=== PATIENT | male | born 1950 | race Caucasian/White ===

== ENCOUNTER 2022-10-29 19:30 | Emergency (ER) | payer MEDICARE, SELFPAY ==
--- NOTE | ~2022-10-29 | XR_ITS ---
EXAM: XR hand RT min 3V DATE: 10/29/2022 19:57 HISTORY: DOG BITE 10/29/22 DORSAL SIDE. . COMPARISON: None available. FINDINGS: Normal mineralization. No fracture or dislocation. No lytic or blastic lesion. Moderate po lyarticular osteoarthritis. No erosion or periosteal change. Punctate hyperdensities in the soft tiss ues of the distal right second digit. IMPRESSION: No acute osseous finding in the right hand. Punctate soft tissue hyperdensities in the di stal right second digit, representing soft tissue foreign bodies of uncertain age, correlate with sup erficial findings of skin injury or infection. Reviewed, dictated and finalized at location [facility]. IMPRESSION: No acute osseous finding in the right hand. Punctate soft tissue hy perdensities in the distal right second digit, representing soft tissue foreign bodies of uncertain age, correlate with superficial findings of skin injury or infection.
[2022-10-29 19:38] VITALS: BP 133/81; PULSE 68; RESP 20; TEMP 36.9; O2SAT 95
--- NOTE | 2022-10-29 19:47 | ED.WOUNDLAC ---
HPI - Wound/Laceration General Chief Complaint: Wound/Laceration Stated Complaint: Dog bite right hand History of Present Illness HPI narrative: Pt is a 71 y/o male, presents to with right hand dog bite laceration, sustained when his own dog bit him while he attempted to remove him from the porch by grabbing his collar. His dog is UTD on immunizations. Pt is uncertain when his last tetanus was received. He denies ROM deficit. Bleeding was quickly controlled at home and he cleaned the wound with soap and water prior to applying a bandage. He is right hand dominant. He has no other complaints today. Related Data Allergies Allergy/AdvReac Type Severity Reaction Status Date / Time MAK Inhibitors Allergy Other Verified 10/29/22 19:48 Sulfa (Sulfonamide Allergy Rash Verified 10/29/22 19:48 Antibiotics) tobramycin Allergy Other Verified 10/29/22 19:48 Review of Systems Integumentary/Breasts: Comments: refer to HPI Exam Const: General: cooperative, healthy appearing, comfortable, no acute distress, well developed, alert, awake and Physically active Nutritional Appearance: average body habitus Orientation/consciousness: oriented to person Limitations: no limitations HENMT: Head: normal to inspection Ears: hearing grossly normal bilaterally Face and sinus: normal facial exam Mouth: Yes Normal oral and palatal mucosa present Eyes: General: appearance normal, both eyes and all related structures Neck: Neck: normal visual inspection and full ROM Resp: Effort & Inspection: normal respiratory effort Auscultation: clear to auscultation bilaterally Cardio: Rate: regular rate Rhythm: regular rhythm Skin: Wounds: wounds noted (dog bite laceration of the right thumb, dorsal aspect, overlying the 1st MC) Other: no active bleeding, no drainage. Distal PMS is intact Neuro: General: oriented to person, oriented to place, oriented to time, patient oriented x3, gait normal, tone normal and moves all extremities Sensory Exam: normal sensation Extrem: General: normal to inspection, full ROM and capillary refill normal Course Course Emergency Course: plain film imaging, R/O fracture/FB, Tetanus booster. Plan to repair if imaging is unremarkable; with steri strips after wound is irrigated here, thumb splint for wound protection, Augmentin for home. Level of Care: Express Care Visit ([id number]) Vital Signs Vital signs: Vital Signs Temperature 36.9 C 10/29/22 19:38 Pulse Rate 68 06/22/23 19:38 Respiratory Rate 20 10/29/22 19:38 Blood Pressure 133/81 10/29/22 19:38 Pulse Oximetry 95 10/29/22 19:38 Oxygen Delivery Room Air 10/29/22 19:38 Temperature 36.9 C 10/29/22 19:38 Pulse Rate 68 10/29/22 19:38 Respiratory Rate 20 10/29/22 19:38 Blood Pressure 133/81 10/29/22 19:38 Pulse Oximetry 95 10/29/22 19:38 Oxygen Delivery Room Air 10/29/22 19:38 Procedures Laceration Laceration 1: Date: 10/29/22 Time: 20:40 Site: upper extremity (RIGHT HAND-1ST ) Side (If applicable): right Size (cm): 1 Pre-repair: wound explored and irrigated ====== Skin Level ====== Skin layer closed with: steri strips (3) ====== Subcutaneous Layer ====== ====== Muscle Layer ====== ====== Tendon Layer ====== Dressing: TELPHA, FINGER SPLINT, COBAN, DISTAL PMS INTACT PRE AND POST APPLICATION MDM - Wound/Laceration MDM Narrative Medical decision making narrative: imaging unremarkable for fracture or FB. Plan to discharge home, augmentin tetanus booster provided, FU with PCP for wound check in 3 days Differential Diagnosis Differential diagnosis: Likely laceration and other (avulsion, FB, Fx) Discharge Plan Discharge Clinical Impression: Need for [id number] (Tdap) vaccine Dog bite of right hand Qualifiers: Encounter type: initial encounter Qualified Code(s): S61.451A - Open bite of right hand, init
[2022-10-29] MEDS: TETANUS,DIPHTHERIA,AC PERTUSSIS ADULT (0.5 ML) BOOSTRIX IM (20:09)
== END 2022-10-29 20:50 | disposition home or self-care (01) ==
PROVIDERS: Emergency Provider Nurse Practitioner Family; PCP Internal Medicine
DX: S61.411A Laceration without foreign body of right hand, initial encounter (principal); W54.0XXA Bitten by dog, initial encounter; Z23 Encounter for immunization
CPT/HCPCS: 29130; 73130; 90471; 90715; 99213; G0463

== ENCOUNTER 2023-04-22 14:26 | Emergency (ER) | payer MEDICARE, SELFPAY ==
[2023-04-22 14:35] VITALS: BP 136/78; PULSE 65; RESP 16; TEMP 37.6; O2SAT 97
--- NOTE | 2023-04-22 15:11 | ED.GENADULT ---
HPI - General Adult General Chief complaint: Extremity Injury, Upper Stated complaint: Right Neck/Shoulder Pain Time Seen by Provider: 04/22/23 15:11 Source: patient, RN notes reviewed and old records reviewed Mode of arrival: ambulatory Limitations: no limitations History of Present Illness HPI narrative: 72-year-old presents to the [facility] with right lateral neck, shoulder for 2 days. Patient states that he was mowing the grass and using a leaf blower 2 days ago States he has taken his tramadol and Flexeril. Using Biofreeze. States the pain is not getting any better. Related Data Home Medications Medication Instructions Recorded Confirmed amlodipine 5 mg tablet mg 04/22/23 apixaban 5 mg tablet (Eliquis) mg 04/22/23 buspirone 5 mg tablet mg 04/22/23 cyclobenzaprine 10 mg tablet mg 04/22/23 hydralazine 25 mg tablet mg 04/22/23 levothyroxine 25 mcg tablet mcg 04/22/23 montelukast 10 mg tablet mg 04/22/23 pantoprazole 40 mg tablet,delayed mg PO 04/22/23 release tamsulosin 0.4 mg capsule mg PO 04/22/23 Allergies Allergy/AdvReac Type Severity Reaction Status Date / Time MAK Inhibitors Allergy Other Verified 04/22/23 14:38 Sulfa (Sulfonamide Allergy Rash Verified 04/22/23 14:38 Antibiotics) tobramycin Allergy Other Verified 04/22/23 14:38 Review of Systems Review of Systems: All systems reviewed & are unremarkable except as noted in HPI and below Constitutional: Constitutional: Reports no additional constitutional complaints Eyes: Eyes: Reports no additional eye complaints ENT: Reports system reviewed and no additional complaints, except as documented Cardiovascular: Cardiovascular: Reports no additional cardiovascular complaints, Denies chest pain and Denies dyspnea Respiratory: Respiratory: Reports no additional respiratory complaints, Denies chest congestion, Denies cough and Denies dyspnea Gastrointestinal: Gastrointestinal: Reports no additional gastrointestinal complaints, Denies abdominal pain, Denies nausea and Denies vomiting Musculoskeletal: Musculoskeletal: Reports as per HPI Integumentary/Breasts: Skin/Breast: Reports system reviewed and no additional complaints, except as docu Neurologic: Reports system reviewed and no additional complaints, except as documented Psychiatric: Psychiatric: Reports no additional psychiatric complaints Allergic/Immunologic: Allergic/Immunologic: Reports no additional allergic/immunologic complaints PMFSH Comments At the time of my signature, I reviewed and agree with the nursing past medical, surgical, social, and family history. There is no relevant family history pertinent to the patient complaint. Exam Const: General: cooperative, healthy appearing, comfortable, no acute distress, well developed, alert and well nourished Nutritional Appearance: well nourished Orientation/consciousness: patient oriented x3 Limitations: no limitations HENMT: Head: normal to inspection Ears: hearing grossly normal bilaterally and external ears normal Face/Nose/Sinus: Normal external nose present, Normal nares present, Normal nasal mucous membranes and turbinates present, normal facial exam and face symmetric Face and sinus: normal facial exam and face symmetric Eyes: General: appearance normal, both eyes and all related structures Alignment and Position: alignment normal Periorbital: periorbital findings normal Pupils: Equal, round and reactive pupils present EOM: EOMs intact bilaterally Neck: Neck: normal visual inspection, full ROM, no lymphadenopathy and no meningeal signs Chest: Chest palpation & inspection: normal inspection of the chest Resp: Effort & Inspection: normal respiratory effort and able to speak in complete sentences Auscultation: clear to auscultation bilaterally, no crackles, no rales, no rhonchi and no wheezes Cardio: Rate: regular rate Rhythm: regular rhythm Back/Spine/Pelvis: Cervical Spine: cervical ROM normal, pain with ce
== END 2023-04-22 15:28 | disposition home or self-care (01) ==
PROVIDERS: Emergency Provider Nurse Practitioner; PCP Internal Medicine
DX: S46.811A Strain of other muscles, fascia and tendons at shoulder and upper arm level, right arm, initial encounter (principal); Z79.899 Other long term (current) drug therapy; Z79.01 Long term (current) use of anticoagulants; X58.XXXA Exposure to other specified factors, initial encounter
CPT/HCPCS: 99213; G0463

== ENCOUNTER 2024-01-08 12:53 | Emergency (ER) | payer MEDICARE, SELFPAY ==
[2024-01-08 13:01] VITALS: BP 143/77; PULSE 83; RESP 16; TEMP 37.5; O2SAT 98
[2024-01-08 13:26] LABS: EDUAAPPEAR Clear; EDUABILI 1+; EDUABLOOD Negative; EDUACOLOR1 Tea Colored; EDUAGLUCOSE Negative; EDUAKETONE Negative; EDUALEUKO Trace; EDUANITRATE Negative; EDUAPH 5.5; EDUAPROTEIN 1+; EDUAUROBILI 0.2
--- NOTE | 2024-01-08 13:36 | ED.GENADULT ---
HPI - General Adult General Chief complaint: Urogenital-Male Stated complaint: Urinary Problem Time Seen by Provider: 01/08/24 13:09 History of Present Illness HPI narrative: 73-year-old male to Express Care with complaint fever up to 103.2?, urinary urgency, urinary retention, penile pain with urination since yesterday. Patient reports urinating 12 times overnight. Patient denies abdominal pain, flank pain, dysuria, pertinent medical history. Patient able to tolerate fluids by mouth. Patient resting comfortably in exam room. No acute distress. Related Data Home Medications Medication Instructions Recorded Confirmed amlodipine 5 mg tablet mg 04/22/23 apixaban 5 mg tablet (Eliquis) mg 04/22/23 buspirone 5 mg tablet mg 04/22/23 hydralazine 25 mg tablet mg 04/22/23 levothyroxine 25 mcg tablet mcg 04/22/23 montelukast 10 mg tablet mg 04/22/23 pantoprazole 40 mg tablet,delayed mg PO 04/22/23 release tamsulosin 0.4 mg capsule mg PO 04/22/23 Adults Multivitamin 01/08/24 tizanidine 2 mg tablet mg 01/08/24 tramadol 50 mg tablet mg 01/08/24 Allergies Allergy/AdvReac Type Severity Reaction Status Date / Time MAK Inhibitors Allergy Other Verified 01/08/24 13:01 Sulfa (Sulfonamide Allergy Rash Verified 01/08/24 13:01 Antibiotics) tobramycin Allergy Other Verified 01/08/24 13:01 Review of Systems Genitourinary: Genitourinary: Reports as per HPI, Denies hematuria, Reports genital pain ( With urination), Denies flank pain, Reports nocturia, Reports urinary frequency and Reports urinary hesitancy Course Course Level of Care: Express Care Visit Vital Signs Vital signs: Vital Signs Temperature 37.5 C 01/08/24 13:01 Pulse Rate 83 01/08/24 13:01 Respiratory Rate 16 01/08/24 13:01 Blood Pressure 143/77 H 01/08/24 13:01 Pulse Oximetry 98 01/08/24 13:01 Oxygen Delivery Room Air 01/08/24 13:01 Temperature 37.5 C 01/08/24 13:01 Pulse Rate 83 01/08/24 13:01 Respiratory Rate 16 01/08/24 13:01 Blood Pressure 143/77 H 01/08/24 13:01 Pulse Oximetry 98 01/08/24 13:01 Oxygen Delivery Room Air 01/08/24 13:01 Medical Decision Making MDM Narrative Medical decision making narrative: 73-year-old male to Express Care with complaint fever up to 103.2?, urinary urgency, urinary retention, penile pain with urination since yesterday. Patient reports urinating 12 times overnight. Patient denies abdominal pain, flank pain, dysuria, pertinent medical history. Patient able to tolerate fluids by mouth. Patient resting comfortably in exam room. No acute distress. patient exam unremarkable. Patient UA positive for UTI in clinic. Her culture sent. Patient is sitting comfortably in exam room nontoxic in appearance. Patient appropriate for outpatient treatment and follow-up. Discharge instructions reviewed with patient, as well as provided in writing per nursing staff. The instructions also include specific and strict return/GO TO THE ER as well as f/u information. All questions have been answered, and the patient deny any further questions with discharge and discharge plan. Some parts of this dictation were generated by voice recognition software and may contain typographical and/or grammatical inaccuracies. Differential Diagnosis Differential Diagnosis: UTI, STI, cystitis Vital Signs Vital Signs: Vital Signs Temperature 37.5 C 01/08/24 13:01 Pulse Rate 83 01/08/24 13:01 Respiratory Rate 16 01/08/24 13:01 Blood Pressure 143/77 H 01/08/24 13:01 Pulse Oximetry 98 01/08/24 13:01 Oxygen Delivery Room Air 01/08/24 13:01 Temperature 37.5 C 01/08/24 13:01 Pulse Rate 83 01/08/24 13:01 Respiratory Rate 16 01/08/24 13:01 Blood Pressure 143/77 H 01/08/24 13:01 Pulse Oximetry 98 01/08/24 13:01 Oxygen Delivery Room Air 01/08/24 13:01 Lab Data Labs: Lab Results 01/08/24 Range/Units 13:23 POC Urine Color Tea colored
== END 2024-01-08 14:06 | disposition home or self-care (01) ==
PROVIDERS: Emergency Provider Nurse Practitioner Family; PCP Internal Medicine
DX: N39.0 Urinary tract infection, site not specified (principal); B96.20 Unspecified Escherichia coli [E. coli] as the cause of diseases classified elsewhere
CPT/HCPCS: 81003; 87077; 87086; 87088; 87186; 99213; G0463

== ENCOUNTER 2024-01-24 09:52 | Emergency (ER) | payer MEDICARE, SELFPAY ==
[2024-01-24 10:05] VITALS: BP 118/76; PULSE 63; RESP 18; TEMP 36.6; O2SAT 98
--- NOTE | 2024-01-24 10:16 | ED.GENADULT ---
HPI - General Adult General Chief complaint: Upper Respiratory Infection Stated complaint: Urinary Problem Source: patient and RN notes reviewed Mode of arrival: ambulatory Limitations: no limitations History of Present Illness HPI narrative: 73 y/o male with history of PE presented for complaint of urinary frequency and urgency. Onset last night. Endorses occasional dribbling. States he was up 7 times in the night to urinate. denies hematuria, nausea, vomiting, abdominal pain, flank pain, constipation, diarrhea, fevers or chills. patient was treated for UTI 2 weeks ago, completed Augmentin. Related Data Home Medications Medication Instructions Recorded Confirmed amlodipine 5 mg tablet 5 mg PO DAILY 04/22/23 01/24/24 apixaban 5 mg tablet (Eliquis) 5 mg PO BID 04/22/23 01/24/24 buspirone 5 mg tablet 5 mg PO BID 04/22/23 01/24/24 hydralazine 25 mg tablet 25 mg PO TID 04/22/23 01/24/24 levothyroxine 25 mcg tablet 25 mcg PO DAILY 04/22/23 01/24/24 montelukast 10 mg tablet 10 mg PO DAILY 04/22/23 01/24/24 pantoprazole 40 mg tablet,delayed 40 mg PO DAILY 04/22/23 01/24/24 release tamsulosin 0.4 mg capsule 0.4 mg PO DAILY 04/22/23 01/24/24 Adults Multivitamin See Rx Instructions .Route .COMPLEX 01/08/24 01/24/24 tizanidine 2 mg tablet 2 mg PO Q8H pain 01/08/24 01/24/24 tramadol 50 mg tablet 50 mg PO DAILY PRN Pain 01/08/24 01/24/24 Allergies Allergy/AdvReac Type Severity Reaction Status Date / Time MAK Inhibitors Allergy Other Verified 01/24/24 09:58 Sulfa (Sulfonamide Allergy Rash Verified 01/24/24 09:58 Antibiotics) tobramycin Allergy Other Verified 01/24/24 09:58 Review of Systems Review of Systems: CONSTITUTIONAL: Denies body aches, fever, chills, or sweats. CARDIOVASCULAR: Denies chest pain, palpitations, or edema. RESPIRATORY: Denies cough or dyspnea. GASTROINTESTINAL: Denies abdominal pain, nausea, vomiting, or diarrhea. GENITOURINARY: Reports dysuria, frequency, urgency, denies hematuria, flank pain SKIN: Denies rash, itching, or wounds. MUSCULOSKELETAL: Denies back pain or myalgia. PMFSH Comments At time of signature, I have reviewed and agree with nursing past medical, surgical, social and family history unless otherwise noted. Please see nursing chart for further information. There is no relevant family history pertinent to the presenting complaint Exam Narrative: GENERAL: Well-appearing ENT: Mucous membranes pink and moist. NECK: Normal AROM. Supple. CHEST: No respiratory distress. Clear to auscultation. HEART: Regular rate and rhythm. ABDOMEN: Soft, nontender, nondistended, normal active bowel sounds. No CVA tenderness SKIN: Warm, dry, no rash. NEURO: No focal deficits. Alert and oriented x3. Gait steady. PSYCH: Normal affect. Course Course Emergency Course: Patient is aware of diagnosis, understands and agrees to treatment plan. Anticipatory guidance given. Patient agrees to follow-up as directed and is aware of reasons to seek care at the emergency department. Portions of this record may have been created with voice recognition software Level of Care: Express Care Visit Vital Signs Vital signs: Vital Signs Temperature 97.9 F 01/24/24 10:05 Pulse Rate 63 01/24/24 10:05 Respiratory Rate 18 01/24/24 10:05 Blood Pressure 118/76 01/24/24 10:05 Pulse Oximetry 98 01/24/24 10:05 Oxygen Delivery Room Air 01/24/24 10:05 Temperature 97.9 F 01/24/24 10:05 Pulse Rate 63 01/24/24 10:05 Respiratory Rate 18 01/24/24 10:05 Blood Pressure 118/76 01/24/24 10:05 Pulse Oximetry 98 01/24/24 10:05 Oxygen Delivery Room Air 01/24/24 10:05 Reviewed Medical Decision Making MDM Narrative Medical decision making narrative: Discussed physical exam findings And reviewed previous urine culture. Advised supportive measures and signs/symptoms to go to the ER. Pt is appropriate for outpt treatment and f/u. Differential Diagnosis Differe
[2024-01-24 10:28] LABS: EDUAAPPEAR Cloudy; EDUABILI 1+ (Negative); EDUABLOOD Negative (Negative); EDUACOLOR1 Yellow; EDUAGLUCOSE Negative (Negative); EDUAKETONE Negative (Negative); EDUALEUKO 1+ (Negative); EDUANITRATE Negative (Negative); EDUAPH 5.5; EDUAPROTEIN Trace (Negative); EDUAUROBILI 0.2
== END 2024-01-24 10:25 | disposition home or self-care (01) ==
PROVIDERS: Emergency Provider Nurse Practitioner Family; PCP Internal Medicine
DX: R39.15 Urgency of urination (principal); Z79.01 Long term (current) use of anticoagulants
CPT/HCPCS: 81003; 87077; 87086; 87088; 87186; 99213; G0463